=== PATIENT | female | born 1965 | race Caucasian/White ===

== ENCOUNTER 2020-05-25 17:55 | Emergency (ER) | payer OTHER ==
[~2020-05-25 17:55] MED LIST: VIBRAMYCIN100 MG PO
== END 2020-05-25 21:30 | disposition left against medical advice (07) ==
LOC: ER1 17:55
DX: Z53.21 Procedure and treatment not carried out due to patient leaving prior to being seen by health care provider (principal)

== ENCOUNTER 2020-05-27 11:27 | Inpatient (IN) | payer OTHER ==
[~2020-05-27] VITALS: Ht 167.6 cm; Wt 95.2 kg
[2020-05-27 12:39] LABS: HEMOGLOBIN 11.5 gm/dl (12.3-15.3); RED BLOOD COUNT 4.41 M/UL (4.00-5.10)
[2020-05-27 13:07] LABS: WHITE BLOOD COUNT 1.5 K/UL (4.5-11.0)
[2020-05-27] MEDS ORDERED: CYCLOBENZAPRINE10 MG PO (15:55)
[2020-05-27] MEDS ORDERED: DIABETA 5 MG TAB5 MG PO (15:55)
[2020-05-27] MEDS ORDERED: GLUCOPHAGE500 MG PO (15:56)
[2020-05-27] MEDS ORDERED: LASIX20 MG PO (15:56)
[2020-05-27] MEDS ORDERED: PROTONIX40 MG PO (15:56)
[2020-05-27] MEDS ORDERED: LOSARTAN-HCTZ1 EAC1 PO (15:57)
[2020-05-27] MEDS ORDERED: SERTRALINE HCL100 MG PO (15:57)
[2020-05-27] MEDS ORDERED: BUSPIRONE HCL7.5 MG PO (15:58)
[2020-05-27] MEDS ORDERED: VISTARIL50 MG PO (15:58)
[2020-05-27] MEDS ORDERED: FARXIGA10 MG PO (16:03)
[2020-05-28 06:40] LABS: HEMOGLOBIN 9.8 gm/dl (12.3-15.3); RED BLOOD COUNT 3.77 M/UL (4.00-5.10); WHITE BLOOD COUNT 1.6 K/UL (4.5-11.0)
[2020-05-28 07:09] LABS: BUN/CREATININE RATIO 31 (0-10)
[2020-05-28 13:14] LABS: ANTI-DSDNA ANTIBODIES <1 IU/mL (0-9)
[2020-05-29 02:34] LABS: HEMOGLOBIN 9.7 gm/dl (12.3-15.3); RED BLOOD COUNT 3.72 M/UL (4.00-5.10)
[2020-05-29 10:13] LABS: ANTIGLOMERULAR BM AB 5 units (0-20)
[2020-05-30 02:59] LABS: HEMOGLOBIN 10.3 gm/dl (12.3-15.3); RED BLOOD COUNT 4.02 M/UL (4.00-5.10); WHITE BLOOD COUNT 2.5 K/UL (4.5-11.0)
[2020-05-31 03:00] LABS: HEMOGLOBIN 9.5 gm/dl (12.3-15.3); RED BLOOD COUNT 3.71 M/UL (4.00-5.10); WHITE BLOOD COUNT 2.2 K/UL (4.5-11.0)
[2020-05-31 19:09] LABS: ANTIMYELOPEROXIDASE (MPO) ABS <9.0 U/mL (0.0-9.0); ANTIPROTEINASE 3 (PR-3) ABS <3.5 U/mL (0.0-3.5); ATYPICAL PANCA <1:20 titer (Neg:<1:20); CYTOPLASMIC (C-ANCA) <1:20 titer (Neg:<1:20); PERINUCLEAR (P-ANCA) <1:20 titer (Neg:<1:20)
[2020-06-01 09:51] LABS: HEMOGLOBIN 10.6 gm/dl (12.3-15.3); RED BLOOD COUNT 4.05 M/UL (4.00-5.10)
[2020-06-01 09:52] LABS: WHITE BLOOD COUNT 4.1 K/UL (4.5-11.0)
[2020-06-01] MEDS ORDERED: HYDRALAZINE HCL25 MG PO (11:22)
[2020-06-01] MEDS ORDERED: AMLODIPINE BESYL5 MG PO (11:22)
[2020-06-01] MEDS ORDERED: COMBIVENT RESPIM4 GM INH ×2 (11:22→11:35)
[2020-06-01] MEDS ORDERED: DECADRON6 MG PO (11:23)
[2020-06-01] MEDS ORDERED: DEX4 GLUCOSE4 GM PO (11:42)
== END 2020-06-01 16:56 | disposition home or self-care (01) | DRG 177 ==
LOC: ER1 11:27 → CDU 14:35 → PROG CARE 16:44
PROVIDERS: Internal Medicine Pulmonary Disease; Physician Assistant; ADMIT Internal Medicine
PROC: 8E0ZXY6 Isolation (ICD-10-PCS; principal; 2020-05-27)
PROC: XW033E5 Introduction of Remdesivir Anti-infective into Peripheral Vein, Percutaneous Approach, New Technology Group 5 (ICD-10-PCS; 2020-05-27)
PROC: XW13325 Transfusion of Convalescent Plasma (Nonautologous) into Peripheral Vein, Percutaneous Approach, New Technology Group 5 (ICD-10-PCS; 2020-05-28)
DX: U07.1 COVID-19 (principal); J96.01 Acute respiratory failure with hypoxia; J12.82 Pneumonia due to coronavirus disease 2019; D61.818 Other pancytopenia; R04.2 Hemoptysis; R00.1 Bradycardia, unspecified; E66.9 Obesity, unspecified; I44.1 Atrioventricular block, second degree; I49.5 Sick sinus syndrome; D72.819 Decreased white blood cell count, unspecified; M62.838 Other muscle spasm; D64.9 Anemia, unspecified; E11.65 Type 2 diabetes mellitus with hyperglycemia; T38.0X5A Adverse effect of glucocorticoids and synthetic analogues, initial encounter; I11.0 Hypertensive heart disease with heart failure; I50.9 Heart failure, unspecified; F41.9 Anxiety disorder, unspecified; F32.9 Major depressive disorder, single episode, unspecified; Z88.1 Allergy status to other antibiotic agents; Z88.0 Allergy status to penicillin; Z82.3 Family history of stroke; Z80.8 Family history of malignant neoplasm of other organs or systems; Z68.33 Body mass index [BMI] 33.0-33.9, adult; Z83.2 Family history of diseases of the blood and blood-forming organs and certain disorders involving the immune mechanism; Z83.3 Family history of diabetes mellitus; Z79.84 Long term (current) use of oral hypoglycemic drugs; Z79.899 Other long term (current) drug therapy; Z82.49 Family history of ischemic heart disease and other diseases of the circulatory system
CPT/HCPCS: 36415; 36600; 71045; 80048; 80053; 82550; 82553; 82803; 82962; 83520; 83605; 84439; 84443; 84484; 85025; 85027; 85379; 85652; 86140; 86225; 86256; 86900; 86901; 86927; 87040; 87070; 87205; 90471; 93005; 93270; 94640; 94664; 94760; 96365; 96375; 97161; 99285; J0360; J1100; J1650; J1885; J1956; J2405; J7030; Q0177; U0002

== ENCOUNTER 2020-06-22 13:53 | Emergency (ER) | payer OTHER ==
[~2020-06-22 13:53] MED LIST changes: +AMLODIPINE BESYL5 MG PO; +BUSPIRONE HCL7.5 MG PO; +COMBIVENT RESPIM4 GM INH; +CYCLOBENZAPRINE10 MG PO; +DECADRON6 MG PO; +DEX4 GLUCOSE4 GM PO; +DIABETA 5 MG TAB5 MG PO; +FARXIGA10 MG PO; +GLUCOPHAGE500 MG PO; +HYDRALAZINE HCL25 MG PO; +LASIX20 MG PO; +LOSARTAN-HCTZ1 EAC1 PO; +PROTONIX40 MG PO; +SERTRALINE HCL100 MG PO; +VISTARIL50 MG PO
[2020-06-22 15:49] LABS: BUN/CREATININE RATIO 17 (0-10)
[2020-06-22 16:42] LABS: RED BLOOD COUNT 4.64 M/UL (4.00-5.10); WHITE BLOOD COUNT 2.5 K/UL (4.5-11.0)
== END 2020-06-22 20:48 | disposition home or self-care (01) ==
LOC: ER1 13:53
PROVIDERS: Family Medicine
DX: E11.65 Type 2 diabetes mellitus with hyperglycemia (principal); I10 Essential (primary) hypertension; C95.90 Leukemia, unspecified not having achieved remission; R47.81 Slurred speech
CPT/HCPCS: 70450; 80053; 81001; 82009; 82962; 85025; 96374; 99285